=== PATIENT | male | born 1980 | race Caucasian/White ===

== ENCOUNTER 2019-12-05 11:36 | Emergency (ER) | payer OTHER, SELFPAY ==
--- NOTE | ~2019-12-05 | XR_ITS ---
EXAMINATION: XR chest 2V DATE: 12/05/2019 12:02 INDICATION: Cough and chest congestion TECHNIQUE: PA and lateral views of the chest are obtained. COMPARISON: 01/11/2018 FINDINGS: The lungs are free of acute opacities. There is no pleural effusion or pneumothorax. The ca rdiomediastinal silhouette is normal. There is mild thoracic spondylosis. IMPRESSION: 1. No acute cardiopulmonary abnormality. Reviewed, dictated and finalized at location A. [employer]
[2019-12-05 11:42] VITALS: BP 134/81; PULSE 88; RESP 20; TEMP 36.4; O2SAT 97
[2019-12-05] MEDS: IPRATROPIUM BR 0.02% INH SOLN 0.5 MG/2.5 ML VIAL INHALATION (12:14)
[2019-12-05] MEDS: ALBUTEROL SULFATE NEB 2.5 MG/0.5 ML INH 5 MG INHALATION (12:14)
[2019-12-05 12:17] VITALS: PULSE 85; RESP 20
[2019-12-05 12:23] VITALS: PULSE 93; RESP 20
[2019-12-05] MEDS: predniSONE 20 MG TABLET 60 MG PO (12:32)
--- NOTE | 2019-12-05 12:53 | ED.URI ---
HPI - URI/Sore Throat General Chief Complaint: Upper Respiratory Infection <Shola Morgan PA-C - Last Filed: 12/05/19 12:56> Stated Complaint: cough <Shola Morgan PA-C - Last Filed: 12/05/19 12:56> Time Seen by Provider: 12/05/19 11:45 <Shola Morgan PA-C - Last Filed: 12/05/19 12:56> Source: patient <JAJA Melendez Last Filed: 12/05/19 12:56> Mode of arrival: ambulatory <Shola Morgan PA-C - Last Filed: 12/05/19 12:56> Limitations: no limitations <Shola Morgan PA-C - Last Filed: 12/05/19 12:56> History of Present Illness HPI Narrative: Patient is a 39-year-old male who presents with 3 weeks duration of nonproductive cough with congestion rhinorrhea has been using his inhaler and Symbicort with minimal improvement patient denies fever chills nausea vomiting or other URI symptoms has seen primary care for this does note that he has frequent exposure to allergens <Shola Morgan PA-C - Last Filed: 12/05/19 12:56> Related Data Allergies/Adverse Reactions: Allergies Allergy/AdvReac Type Severity Reaction Status Date / Time No Known Allergies Allergy Unverified 01/11/18 12:57 <Shola Morgan PA-C - Last Filed: 12/05/19 12:56> Review of Systems Review of Systems: All systems reviewed & are unremarkable except as noted in HPI and below <Shola Morgan PA-C - Last Filed: 12/05/19 12:56> [facility] Past Medical History Medical History: Medical History Former tobacco use <Shola Morgan PA-C - Last Filed: 12/05/19 12:56> Family History Family History: Family History (Updated 03/03/18 @ 15:43 by DOCTOR UNKNOWN) Mother Patient's mother is in good health Father Patient's father is in good health <Shola Morgan PA-C - Last Filed: 12/05/19 12:56> Social History Social History: Social History Social History: Smoking status: Former smoker Tobacco type: cigarettes Second hand tobacco smoke exposure: No Smoking end date: 10/14/06 Alcohol intake: never Substance use: never Substance use type: does not use Gender identity (if verbalized by the patient): Male <JAJA Melendez Last Filed: 12/05/19 12:56> Exam Narrative: Exam Narrative: GENERAL: Well-appearing, well-nourished, and in no acute distress. HEAD: Normocephalic, atraumatic. EYES: PERRLA and EOMI. ENT: Nares clear, no rhinorrhea or epistaxis. Mucous membranes moist. Oropharynx without tonsillar hypertrophy exudate or other lesions. CHEST: Clear to auscultation. No respiratory distress. No wheezes rales or rhonchi HEART: Regular rate and rhythm. No murmur heard. EXTREMITIES: Normal range of motion. No edema. SKIN: Warm, dry, no rash. NEURO: No focal deficits. Alert and oriented x3. PSYCH: Normal mood and affect. <JAJA Melendez Last Filed: 12/05/19 12:56> Course Course Emergency Course: Patient in the room in no distress aware of case findings treatment plan and diagnosis <JAJA Melendez Last Filed: 12/05/19 12:56> Vital Signs Vital signs: Vital Signs Temperature 97.6 F 12/05/19 11:42 Pulse Rate 88 12/05/19 11:42 Respiratory Rate 12/05/19 11:42 Blood Pressure 134/81 12/05/19 11:42 Pulse Oximetry 97 12/05/19 11:42 Temperature 98.1 F 12/05/19 13:09 Pulse Rate 80 12/05/19 13:09 Respiratory Rate 12/05/19 13:09 Blood Pressure 124/80 12/05/19 13:09 Pulse Oximetry 99 12/05/19 13:09 <JAJA Melendez Last Filed: 12/05/19 12:56> Vital Signs Temperature 97.6 F 12/05/19 11:42 Pulse Rate 88 12/05/19 11:42 Respiratory Rate 20 12/05/19 11:42 Blood Pressure 134/81 12/05/19 11:42 Pulse Oximetry 97 12/05/19 11:42 Temperature 98.1 F 12/05/19 13:09 Pulse Rate 80 12/05/19 13:09 Respiratory Rate 20 12/05/19 13:09 Blood Pressure 124/80
[2019-12-05 13:09] VITALS: BP 124/80; PULSE 80; RESP 20; TEMP 36.7; O2SAT 99
== END 2019-12-05 13:10 | disposition home or self-care (01) ==
PROVIDERS: Emergency Provider General Practice; PCP Family Medicine
DX: J20.9 Acute bronchitis, unspecified (principal); Z87.891 Personal history of nicotine dependence
CPT/HCPCS: 71046; 94640; 99283; J7512

== ENCOUNTER 2020-08-25 08:13 | Outpatient (CLI) | payer OTHER, SELFPAY ==
--- NOTE | ~2020-08-25 | CT_ITS ---
EXAMINATION:CT chest high resolution wo tx DATE: 08/25/2020 08:49 INDICATION: Asthma. TECHNIQUE: Computed tomography (CT) of the chest was performed without intravenous contrast. Automate d exposure control and iterative reconstruction technique were employed. The dose-length product (DLP ) was 216.24 mGy-cm. COMPARISON: Chest 2 views 12/05/2019 FINDINGS: There is mild scarring at the lung apices. There is a 4 mm nodule in right middle lobe, lik helga benign. There is mild bronchiectasis in anteromedial basal segment left lower lobe. There is mild atelectasis in left upper lobe. No pleural effusion. The heart size is normal. No pericardial effusi on. There is mild thoracic spondylosis. IMPRESSION: 1. Mild bronchiectasis in anteromedial basal segment left lower lobe. Reviewed, dictated and finalized at location B. [employer]ED[employer] THERAPIST
[2020-08-25 10:16] LABS: Basophils Percent Auto 0.6 % (0.2-1.2); Eosinophils Absolute Auto 0.2 K/mm3 (0-0.3); Eosinophils Percent Auto 4.9 % (0-4.4); Hematocrit 52.5 % (42.0-52.0); Hemoglobin 17.8 g/dL (14.0-18.0); Immature Granulocyte Absolute 0.04 K/mm3 (0.00-0.031); Immature Granulocyte Percent A 0.9 % (0-0.5); Immature Platelet Fraction Pct 4.1 % (0.9-11.2); Lymphocytes Absolute Auto 1.49 K/mm3 (0.9-3.2); Mean Corpuscular HGB Conc 33.9 g/dl (32-36); Mean Corpuscular Hemoglobin 30.8 pg (26-34); Mean Corpuscular Volume 90.8 fl (80-100); Mean Platelet Volume 10.2 fl (7.4-10.4); Monocytes Absolute Auto 0.4 K/mm3 (0.1-0.6); Neutrophils Absolute Auto 2.4 K/mm3 (1.3-6.7); Neutrophils Percent Auto 52.6 % (45.5-73.1); Platelet Count Result 248 k/mm3 (150-375); Red Blood Count 5.78 M/mm3 (4.6-6.20); Red Cell Distribution Width 12.3 % (11.5-14.5); White Blood Count 4.7 K/mm3 (4.5-10.0)
[2020-08-27 18:28] LABS: Immunoglobulin G, Serum 1037 mg/dL (600-1640); Immunoglobulin G1 459 mg/dL (382-929); Immunoglobulin G2 363 mg/dL (241-700); Immunoglobulin G3 72 mg/dL (22-178); Immunoglobulin G4 86.5 mg/dL (4.0-86.0)
[2020-08-29 10:55] LABS: Immunoglobulin E 389 kU/L (<=114)
[2020-09-01 00:07] LABS: Alpha-1-Antitrypsin, QN 125 mg/dL (83-199)
== END 2020-08-25 08:14 | disposition home or self-care (01) ==
PROVIDERS: PCP Family Medicine; Visit Provider Internal Medicine Critical Care Medicine
DX: J45.909 Unspecified asthma, uncomplicated (principal); R91.8 Other nonspecific abnormal finding of lung field
CPT/HCPCS: 36415; 71250; 82103; 82104; 82784; 82785; 82787; 85025; 85055; 86003; 86606

== ENCOUNTER 2020-10-05 11:36 | Outpatient (CLI) | payer OTHER, SELFPAY ==
[2020-10-13 11:09] LABS: ANA Cascade Screen Negative (Negative)
== END 2020-10-05 11:37 | disposition home or self-care (01) ==
LOC: ANHLAB 11:38
PROVIDERS: PCP Family Medicine; Visit Provider Internal Medicine Critical Care Medicine
DX: J47.9 Bronchiectasis, uncomplicated (principal); M35.9 Systemic involvement of connective tissue, unspecified
CPT/HCPCS: 36415; 86038; 87015; 87070; 87116; 87205; 87206

== ENCOUNTER → 2022-11-12 15:45 | Outpatient (CLI) | payer OTHER, SELFPAY ==
--- NOTE | ~2022-11-12 | CT_ITS ---
EXAMINATION: CT sinus wo con DATE: 11/12/2022 16:00 INDICATION: Chronic sinusitis, unspecified. TECHNIQUE: Computed tomography (CT) of the paranasal sinuses was performed without intravenous contra st. Iterative reconstruction technique was employed. The dose-length product was 303.89 mGy-cm. COMPARISON: None FINDINGS: There is mucosal thickening in the frontal sinuses. There is total occlusion of left fronta l recess and near total occlusion of right frontal recess. There is moderate mucosal thickening in th e ethmoid sinuses. There is mild mucosal thickening in the sphenoid and maxillary sinuses. Right osti omeatal unit is patent. There is occlusion of left ostiomeatal unit at the hiatus semilunaris and inf undibulum. There is a Earnestine cell on the left. There is unruly bullosa involving left middle turbinat e. There is rightward deviation of superior nasal septum and leftward deviation of inferior nasal sep johnathan. IMPRESSION: 1. Mucosal thickening in the paranasal sinuses. Reviewed, dictated and finalized at location A. [employer]
== END ==
PROVIDERS: PCP Allergy & Immunology; Visit Provider Allergy & Immunology
DX: J32.9 Chronic sinusitis, unspecified (principal)
CPT/HCPCS: 70486